=== PATIENT | male | born 1950 | race Caucasian/White ===

== ENCOUNTER 2018-01-25 09:10 | Emergency (ER) | payer MEDICARE ==
[2018-01-25 09:24] VITALS: BP 125/73
--- NOTE | 2018-01-25 10:01 | UC ---
Back Pain HPI - HPI Summary HPI Summary: Pt is a 67 y/o M presents to c/o bilateral lower back pain and stiffness. Notes urine is low in output, dark in color, and smells iftikhar since 6 days ago , but denies dysuria. He also has been having back muscle spasms; today the spasms were in the middle of his back on the right side. Notes fever and cold sweats at night, and right now he is cold and cant stop shaking. When he first noticed the changes in urine he attributed the symptoms to drinking beer during 18 of January holiday, so he changed his liquid intake and only drank soda, water , and Dru-Aid, but symptoms were unchanged. Palpating the kidney area doesnt cause pain and he denies pain in bladder area. He does note that his ear lobe feels like someone is standing on it, scalp pain, and generalized weakness. No Hx of prostate problems. Hx of arthritis. Didnt take his usual medications for muscle stiffness this morning. - History of Current Complaint Chief Complaint: UCGU Stated Complaint: URINARY COMPLAINT Time Seen by Provider: 01/25/18 09:32 Hx Obtained From: Patient Onset/Duration: Lasting Days, Still Present Severity Currently: Moderate Pain Intensity: 5 Pain Scale Used: 0-10 Numeric Associated Signs And Symptoms: Positive: Fever, Weakness - generalized weakness , Flank Pain - Allergies/Home Medications Allergies/Adverse Reactions: Allergies Allergy/AdvReac Type Severity Reaction Status Date / Time clindamycin Allergy sweats Verified 01/25/18 10:33 heart racing Penicillins Allergy kidney's Verified 01/25/18 10:33 shut down Home Medications: Home Medications Adalimumab [Humira] 1 sq-hdm SUBCUT 01/25/18 [History] Citalopram Hydrobromide [Citalopram HBr] 10 mg PO DAILY 01/25/18 [History Confirmed 01/25/18] Hydroxychloroquine Sulfate 200 mg PO DAILY 01/25/18 [History Confirmed 01/25/18] Losartan TAB* [Cozaar TAB*] 50 mg PO DAILY 01/25/18 [History Confirmed 01/25/18] Meloxicam 7.5 mg PO DAILY 01/25/18 [History Confirmed 01/25/18] Pravastatin (NF) [Pravachol (NF)] 10 mg PO DAILY 01/25/18 [History Confirmed 06/04] Ranitidine TAB (NF) [Zantac TAB (NF)] 150 mg PO DAILY 01/25/18 [History Confirmed 01/25/18] PMH/Surg Hx/FS Hx/Imm Hx Cancer History: Prostate Cancer - NEGATIVE: prostate cancer - Surgical History Surgical History: None - Social History Alcohol Use: Occasionally Substance Use Type: None Smoking Status (MU): Former Smoker Review of Systems Constitutional: Chills Skin: Negative Eyes: Negative ENT: Negative Respiratory: Negative Cardiovascular: Negative Gastrointestinal: Other - B/L FLANK PAIN Genitourinary: Other - DARK URINE Motor: Negative Neurovascular: Negative Musculoskeletal: Myalgia Neurological: Weakness - GENERALIZED Psychological: Negative Is Patient Immunocompromised?: Yes All Other Systems Reviewed And Are Negative: Yes Physical Exam Triage Information Reviewed: Yes Vital Signs: Initial Vital Signs Temp 99.4 F 01/25/18 09:19 Pulse 110 01/25/18 09:19 Resp 20 01/25/18 09:19 BP 125/73 01/25/18 09:19 Pulse Ox 100 01/25/18 09:19 Back Pain Course/Dx - Course Course Of Treatment: PATIENT IS ON NURYS. WITH THE DARK URINE, CONCERN OF LIVER OR KIDNEY PROBLEM THAT IS TIME SENSITIVE FOR DIAGNOSIS AND TREATMENT. PATIENT PREFERS TO GO BY POV TO THE ED. - Differential Dx/Diagnosis Provider Diagnoses: DARK URINE. BILATERAL FLANK PAIN. CHILLS Discharge - Sign-Out/Discharge Documenting (check all that apply): Patient Departure - Discharge Plan Condition: Stable Disposition: HOME-RECOMMEND TO ED Patient Education Materials: Fever in Adults (ED), Flank Pain (ED) Referrals: Kash Greene MD [Primary Care Provider] - Additional Instructions: GO DIRECTLY TO THE EMERGENCY DEPARTMENT FOR FURTHER EVALUATION OF YOUR ILLNESS, FLANK PAIN AND CHILLS. - Billing Disposition and Condition Condition: STABLE Disposition: Home-Recommend to ED
== END 2018-01-25 10:07 | disposition home health service (06) ==
LOC: UCEAST 09:10
DX: R82.99 Other abnormal findings in urine (principal); M54.5 Low back pain; R10.9 Unspecified abdominal pain; R68.83 Chills (without fever); Z88.1 Allergy status to other antibiotic agents; Z88.0 Allergy status to penicillin; Z87.891 Personal history of nicotine dependence
CPT/HCPCS: 99212; G0463

== ENCOUNTER 2018-01-25 10:26 | Inpatient (IN) | payer MEDICARE, OTHER ==
--- NOTE | 2018-01-25 10:40 | ED ---
GI/ HPI - HPI Summary HPI Summary: This pt is a 67 y/o male presenting to [facility] from [facility] c/o bilateral flank pain and dark urine color for the past 5 days. Pt reports he began to feel ill 6 days ago and 5 days ago just drank soda. He notes that 4 days ago he began drinking more water but noted his urine was darker, described as "iftikhar color." Denies dysuria. Pt is circumcised. Today he presents with chills and fever. Additionally states he has a cough, runny nose, and dryness in his throat. PMHx: psoriatic arthritis, GERD, high cholesterol, HTN. Pt is on Humira, his last injection was 1 week ago. Allergic to penicillin and clindamycin. - History of Current Complaint Chief Complaint: EDFlankPain Stated Complaint: FLANK PAIN/FEVER Hx Obtained From: Patient Onset/Duration: Started Days Ago, Still Present Timing: Lasting Days Current Severity: Moderate Pain Intensity: 5 Location of Pain: Flank - bilateral Associated Signs and Symptoms: Positive: Fever, Flank Pain - bilateral, Chills, Cough, Other: - dark urine color, runny nose, dryness in his thorat. Negative: Dysuria Aggravating Factor(s): Nothing Alleviating Factor(s): Nothing - Allergy/Home Medications Allergies/Adverse Reactions: Allergies Allergy/AdvReac Type Severity Reaction Status Date / Time clindamycin Allergy sweats Verified 01/25/18 10:33 heart racing Penicillins Allergy kidney's Verified 01/25/18 10:33 shut down PMH/Surg Hx/FS Hx/Imm Hx Cardiovascular History: Reports: Hx Hypertension, Other Cardiovascular Problems/ Disorders - high cholesterol GI History: Reports: Hx Gastroesophageal Reflux Disease Musculoskeletal History: Reports: Hx Arthritis - psoriatic arthritis Denies: Hx Scoliosis Neurological History: Reports: Other Neuro Impairments/Disorders - INJURED BACK IN 70'S AND 80'S HERNIATED DISC Denies: Hx Headaches - Cancer History Cancer Type, Location and Year: poriasis Infectious Disease History: No Infectious Disease History: Denies: Traveled Outside the [place] in Last 30 Days - Family History Known Family History: Positive: Cardiac Disease - Father. Mother with stent - Social History Alcohol Use: Occasionally Substance Use Type: Reports: None Smoking Status (MU): Former Smoker Review of Systems Positive: Fever, Chills Eyes: Negative ENT: Other - dryness in his throat Positive: Nasal Discharge Positive: Cough Genitourinary: Other - dark urine color Positive: flank pain - bilateral. Negative: dysuria Skin: Negative Neurological: Negative All Other Systems Reviewed And Are Negative: Yes Physical Exam - Summary Physical Exam Summary: Appearance: Well appearing, no pain distress Skin: warm, dry, reflects adequate perfusion Head/face: normal Eyes: EOMI, MICHELL ENT: Some nasal discharge. Throat is clear. Neck: supple, non-tender Respiratory: Pt is tachypneic. He has rustling breath sounds in the right base. Cardiovascular: Tachycardic, pulses symmetrical Abdomen: non-tender, soft Bowel: present Musculoskeletal: some rheumatoid changes in joints of his hands. Neuro: normal, sensory motor intact, A&Ox3 Triage Information Reviewed: Yes Vital Signs On Initial Exam: Initial Vitals Temp Pulse Resp BP Pulse Ox 102.2 F 121 22 149/84 100 01/25/18 10:28 01/25/18 10:28 01/25/18 10:28 01/25/18 10:28 01/25/18 10:28 Vital Signs Reviewed: Yes Diagnostics - Vital Signs Vital Signs Temp Pulse Resp BP Pulse Ox 01/25/18 10:28 102.2 F 121 22 149/84 100 - Laboratory Result Diagrams: 01/25/18 11:16 01/25/18 11:15 Lab Statement: Any lab studies that have been ordered have been reviewed, and results considered in the medical decision making process. - Radiology Chest XR Xray Interpretation: No Acute Changes - IMPRESSION: 1. Limited study. 2. Hyperinflation. 3. No active cardiopulmonary disease. Dr. Barrera has reviewed this radiology report. Radiology Interpretation Completed By: ED Physician - Chest XR is negative., Radiologist - EKG 10:53 Cardiac Rate: Tachycardia - at 101 bpm EKG Rhythm: Sinus Tachycardia ST Segment: Normal EKG Interpretation: Normal axis and intervals. GIGU Course/Dx - Course Course Of Treatment: Patient is improving with IV fluids, early antibiotics. He presents with high fever, sepsis syndrome while also immunocompromised on biologic agent for psoriatic arthritis. No septic sources evident on exam. Urine is pending as the patient is unable to provide a sample. He has received a large volume IV fluid resuscitation, antipyretic and antibiotics. The hospitalist was contacted and will admit the patient for further evaluation and treatment. - Diagnoses Differential Diagnoses - Male: Other - Sepsis/bacteremia, and ammonia, sinusitis , UTI, occult source of sepsis Provider Diagnoses: Fever, Sepsis, Immunocompromised state - Physician Notifications Discussed Care Of Patient With: Denny Charles Time Discussed With Above Provider: 12:58 Instructed by Provider To: Admit As Inpatient - Critical Care Time Critical Care Time: 30-74 min - 30 minutes - CCT is EXCLUSIVE of separately billable procedures Discharge - Sign-Out/Discharge Documenting (check all that apply): Patient Departure - Admit - Discharge Plan Condition: Fair Disposition: ADMITTED TO [facility] - Billing Disposition and Condition Condition: FAIR Disposition: Admitted to [facility]
[2018-01-25] MEDS ORDERED: metroNIDAZOLE IV 500 MG/100ML* 500 MG/100 ML BAG IVPB ONE (10:44)
[2018-01-25] MEDS ORDERED: NS 0.9% 1000 ML*IV.FLUID IV ONE (10:44)
[2018-01-25] MEDS ORDERED: Cefepime(*) 2 GM in NS 0.9% 50 ML* 50 ML IVPB ONE (10:44)
[2018-01-25] MEDS ORDERED: Acetaminophen TAB* 325 MG PO ONE (10:46)
[2018-01-25] MEDS ORDERED: NS 0.9% 50 ML* 50 ML ONE (11:11)
[2018-01-25] MEDS ORDERED: Cefepime 2 GM in Dextrose(*) 2 GM/50 ML BAG IV ONE ×2 (11:15→12:00)
[2018-01-25 11:31] LABS: Hematocrit 36 % (42-52); Hemoglobin 12.6 g/dl (14.0-18.0); Mean Corpuscular HGB Conc 35 g/dl (31-36); Mean Corpuscular Hemoglobin 32 pg (27-31); Mean Corpuscular Volume 92 fL (80-94); Mean Platelet Volume 7.7 um3 (7.4-10.4); Platelet Count 236 10^3/ul (150-450); Red Cell Distribution Width 13 % (10.5-15); White Blood Count 12.7 10^3/ul (3.5-10.8)
[2018-01-25 11:34] LABS: ABS Basophils 0 10^3/ul (0-0.2); ABS Eosinophils 0.1 10^3/ul (0-0.6); ABS Lymphocytes 1.3 10^3/ul (1.0-4.8); ABS Monocytes 1.7 10^3/ul (0-0.8); ABS Neutrophils 9.7 10^3/ul (1.5-7.7)
[2018-01-25 11:50] LABS: EGFR Non-African American 51.1 (>60); INR 1.08 (0.77-1.02)
[2018-01-25 11:52] LABS: ABS Basophils 0 10^3/ul (0-0.2); ABS Neutrophils 9.3 10^3/ul (1.5-7.7); Monocytes % 14 % (0-7)
--- NOTE | 2018-01-25 11:53 | RAD ---
HISTORY: fever, sepsis COMPARISONS: October 14, 2014 VIEWS: 4: Frontal dual-energy and lateral views of the chest. The left costophrenic angle is cut off. FINDINGS: CARDIOMEDIASTINAL SILHOUETTE: The cardiomediastinal silhouette is normal. KRYSTAL: The krystal are normal. PLEURA: The right costophrenic angle is sharp. The left costophrenic angle is cut off. LUNG PARENCHYMA: There is hyperinflation. There are calcified granulomas of the chest. ABDOMEN: The upper abdomen is clear. There is no subphrenic gas. BONES AND SOFT TISSUES: No bone or soft tissue abnormalities are noted. OTHER: None. IMPRESSION: 1. LIMITED STUDY. 2. HYPERINFLATION. 3. NO ACTIVE CARDIOPULMONARY DISEASE.
[2018-01-25] MEDS ORDERED: Acetaminophen TAB* 325 MG PO PRN (13:51)
[2018-01-25] MEDS ORDERED: Magnesium Hydroxide LIQ* 30 ML UDC PO PRN (13:51)
[2018-01-25] MEDS ORDERED: Albuterol 2.5 MG/3 ML NEB.SOL* (0.083%) INH PRN (13:51)
[2018-01-25] MEDS ORDERED: Ondansetron INJ* 2 MG/ML VIAL IV PRN (13:51)
[2018-01-25] MEDS ORDERED: Al Hydrox/Mg Hydrox/Simet LIQ* 30 ML UDC PO PRN (13:51)
[2018-01-25] MEDS ORDERED: oxyCODONE/Acetamin 5/325 MG* TAB PO PRN (13:51)
[2018-01-25] MEDS ORDERED: Vancomycin(*) 1,000 MG in NS 0.9% 250 ML* 250 ML IVPB ONE ×2 (13:59)
[2018-01-25] MEDS ORDERED: Vancomycin per Pharmacy* NOTE FOLLOW UP PRN (14:50)
[2018-01-25] MEDS ORDERED: Vancomycin(*) 1,250 MG in NS 0.9% 250 ML* 250 ML IVPB ONE (15:00)
[2018-01-25] MEDS ORDERED: NS 0.9% 250 ML* 250 ML ONE (15:00)
[2018-01-25] MEDS: Heparin VIAL(*) 5000 UNITS/ML VIAL (FIVE THOUSAND) SUBCUT SCH ×2 (15:02→20:46)
--- NOTE | 2018-01-25 15:20 | RAD ---
Indication: Flank pain. Real-time sonography of the kidneys was performed. The right kidney measures 11.0 x 4.2 x 5.2 cm. No hydronephrosis is noted. The left kidney measures 11.0 x 5 3 x 5.5 cm. No hydronephrosis is noted. A cyst is noted in the midportion of the left kidney measuring 1.0 x 1.2 x 0.9 cm. IMPRESSION: Left renal cyst measuring up to 1.0 x 1.2 x 0.9 cm. No hydronephrosis of either kidney is noted.
--- NOTE | 2018-01-25 15:53 | HP ---
CC: Dr. Greene* ADMISSION HISTORY AND PHYSICAL: DATE OF ADMISSION: 01/25/18 PATIENT OF: Dr. Anthony Charles.* (DICTATED BY JACKELYN PALMER) PRIMARY CARE PHYSICIAN: Dr. Kash Greene. CHIEF COMPLAINT: 1. Bilateral flank pain and decreased urine output. 2. Fever and chills. 3. Generalized malaise. HISTORY OF PRESENT ILLNESS: Mr. Ho is a 67-year-old gentleman who carries past medical history significant for rheumatoid arthritis, for which he takes a Humira shot every other week as well as history of hypertension who was sent to [facility] Emergency Room by Dr. Trevino from urgent care facility with complaints of bilateral flank pain, fever, chills, tachycardia, and dark urine x1 week. The patient notes that he had multiple parties to attend around 01/18/18 that noted to have very hot temperature outdoors. He has been drinking lots of beer in every green party and has not been drink an enough water. He noticed gradual decrease in his urine output everyday that appears to be darker and darker in color, more iftikhar and dark brown, but denies any bright red blood in his urine. He also noticed associated bilateral flank pain in the past couple of days as well as low-grade fever that has gotten worse last night to the point of having shaking chills. He also notes some night sweats last night as well and generalized malaise overall. He denied any nausea, vomiting, abdominal pain, or history of nephrolithiasis. He denies any suprapubic pain, dysuria, or urinary frequency. He had approximately half a cup of urine upon waking up this morning and has not peed since then. He was evaluated in the emergency room and at the time of admission, the patient was still unable to void and his bladder scan is pending at this time anticipating straight catheterization if indicated. His laboratory workup showed mild leukocytosis of 12,000. He also had a fever of 102 upon presentation. He also had tachycardia with heart rate of 121 that was markedly improved after 2.5 liters of resuscitation. The patient met all criteria for sepsis, for which we were asked to see for further evaluation of probable urinary tract infection versus pyelonephritis as well as consider admission for aggressive IV hydration as well as antibiotics. PAST MEDICAL HISTORY: As mentioned above, significant for: 1. Rheumatoid arthritis, for which he takes Humira every other Tuesday. 2. Hypertension. 3. Hyperlipidemia. 4. GERD. PAST SURGICAL HISTORY: None. CURRENT MEDICATIONS: Include: 1. Humira 40 mg syringe 1 subcu injection every other Tuesday. 2. Citalopram 10 mg p.o. daily. 3. Hydroxychloroquine sulfate 200 mg p.o. daily. 4. Losartan 50 mg p.o. daily. 5. Meloxicam 7.5 mg p.o. daily. 6. Pravastatin 10 mg p.o. q.h.s. 7. Zantac 150 mg p.o. daily. ALLERGIES: He is allergic to PENICILLINS and CLINDAMYCIN. FAMILY HISTORY: Significant for [place] in his father and grandfather, but denies any malignancies. 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 He is a and lives with a girlfriend, Elida, which he known for 5 years. She is the healthcare proxy. He is a former smoker who quit smoking back in 1997. He drinks alcohol occasionally, however again he thinks he "overdid it over 01/18/18 weekend with multiple parties and binge drinking back then." He denies illicit drug use. REVIEW OF SYSTEMS: See HPI, otherwise 14-point review of systems were evaluated and were essentially negative. PHYSICAL EXAMINATION GENERAL: He is a pleasant, upper middle-aged gentleman, appears healthy and in no acute distress or discomfort at the time of admission. VITAL SIGNS: Revealed temperature of 101.4, pulse of 107, blood pressure of 159 /86, respirations of 22 with O2 sat of 100% on room air. HEENT: Head is normocephalic, atraumatic. Sclerae anicteric. PERRLA. EOMs intact. Oropharynx is pink and moist. NECK: Supple. Trachea midline. No cervical adenopathy, thyromegaly, or JVD. LUNGS: Clear to auscultation bilaterally. HEART: Regular rate and rhythm. Normal S1 and S2 without rubs, murmurs, or gallops. ABDOMEN: Soft, nontender, and nondistended. There are no hernias, masses, or hepatosplenomegaly. There is no suprapubic distention or tenderness on palpation. BACK: With normal curvature and no CVA tenderness. EXTREMITIES: Without cyanosis, clubbing, or edema. RECTAL: Exam deferred at this time. NEUROLOGIC: He is awake, alert, and oriented x4. Neurological exam is grossly normal. LABORATORY DATA: CBC with white count of 12,700, hemoglobin 12.6, hematocrit 36, and platelets of 236. Chemistry panel with sodium of 134, potassium 3.4, chloride of 100, CO2 of 23, BUN of 19, and creatinine of 0.39. His LFTs are essentially within normal limits with slight elevation of his transaminases at 57 and 78 respectively. His C-reactive protein is elevated with value of 237. ACCESSORY DIAGNOSTIC DATA: EKG done earlier revealed sinus tachycardia with no evidence of ST changes. Chest x-ray showed hyperventilation with no active cardiopulmonary disease. ASSESSMENT AND PLAN: A 67-year-old gentleman who has past medical history significant for hypertension, hyperlipidemia, gastroesophageal reflux disease, and rheumatoid arthritis who presented to the emergency room sent from the Urgent Care Clinic with a week history of generalized malaise with worsening flank pain, fever, chills, tachycardia, and low urine output, for which he will be admitted under medical services for the followin. Sepsis. The patient meets sepsis criteria with tachycardia, fever, and leukocytosis. He had approximately 25 cc of normal saline fluid resuscitation in ED and will continue his aggressive IV hydration as an inpatient. He appears to be hemodynamically stable at this time. He also received the dose of cephalosporin and metronidazole in the ED and will continue and add a dose of vancomycin to be adjusted by pharmacy later on. I suspect urinary source of his symptoms awaiting the results of his urinalysis and the reflected culture and sensitivity. He does not have any CVA tenderness on exam suggesting pyelonephritis at this point, but we will obtain renal ultrasound for further evaluation. I will also continue to do bladder scan every 6 hours with straight catheterization if needed given the patient has any symptoms of urinary retention. 2. Fever and chills. Again secondary to probable urinary source. We will cover prophylactically on antibiotic awaiting urinalysis and blood culture findings. 3. Hypertension. We will continue his losartan. 4. Hyperlipidemia. We will continue his statin. 5. Gastroesophageal reflux disease. We will continue his Zantac as prescribed. 6. DVT prophylaxis. The patient is a high risk, will be covered with subcu heparin. 7. Code status. He is a full code and girlfriend, Elida, is the healthcare proxy. TIME SPENT: Approximately 60 minutes were spent admitting this patient with greater than 50% on obtaining history and performing physical exam. I have discussed the case with my attending, Dr. Charles, who agreed to plan of care. JACKELYN PALMER [id number]/CPS #: [id number] MELITA
[2018-01-25] MEDS: NS 0.9% 1000 ML* 1,000 ML IV SCH (16:59)
[2018-01-25] MEDS: Ibuprofen TAB* 600 MG PO PRN (20:45)
[2018-01-25] MEDS: PRAVASTATIN 10 MG PO SCH (20:46)
[2018-01-26] MEDS: Vancomycin(*) 750 MG in NS 0.9% 250 ML* 250 ML IVPB SCH ×3 (01:33→17:21)
[2018-01-26] MEDS: NS 0.9% 1000 ML* 1,000 ML IV SCH (02:03)
[2018-01-26] MEDS: Heparin VIAL(*) 5000 UNITS/ML VIAL (FIVE THOUSAND) SUBCUT SCH ×3 (05:48→22:36)
[2018-01-26 06:54] LABS: ABS Basophils 0 10^3/ul (0-0.2); ABS Eosinophils 0.1 10^3/ul (0-0.6); ABS Lymphocytes 1.6 10^3/ul (1.0-4.8); ABS Monocytes 1.2 10^3/ul (0-0.8); ABS Neutrophils 8.7 10^3/ul (1.5-7.7); ABS Nucleated RBC 0 10^3/ul; Eosinophil % 0.9 % (0-6); Hematocrit 30 % (42-52); Hemoglobin 10.7 g/dl (14.0-18.0); Mean Corpuscular HGB Conc 35 g/dl (31-36); Mean Corpuscular Hemoglobin 33 pg (27-31); Mean Corpuscular Volume 92 fL (80-94); Mean Platelet Volume 7.6 um3 (7.4-10.4); Nucleated Red Blood Cells % 0; Platelet Count 192 10^3/ul (150-450); Red Blood Count 3.27 10^6/ul (4.00-5.40); Red Cell Distribution Width 13 % (10.5-15); White Blood Count 11.7 10^3/ul (3.5-10.8)
[2018-01-26 07:15] LABS: EGFR Non-African American 56.7 (>60)
[2018-01-26] MEDS: Hydroxychloroquine TAB* 200 MG PO SCH (08:50)
[2018-01-26] MEDS: Citalopram TAB* 10 MG PO SCH (08:50)
[2018-01-26] MEDS: Losartan TAB* 25 MG PO SCH (08:51)
[2018-01-26] MEDS: Famotidine TAB* 20 MG PO SCH (08:51)
[2018-01-26 09:00] LABS: Urine Appearance Clear; Urine Blood Negative (Negative); Urine Color Yellow; Urine Ketones Negative (Negative); Urine Protein Negative (Negative); Urine Specific Gravity 1.013 (1.010-1.030); Urine Urobilinogen Negative (Negative)
[2018-01-26] MEDS ORDERED: Cefepime 1 GM in Dextrose(*) 1 GM/50 ML BAG IV SCH (09:00)
--- NOTE | 2018-01-26 11:17 | PN ---
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 H had been in his usual state of health till 1-2 days prior to admission when he noted dark urine and decreased UO. He started drinking more liquids, but then he developed fever and rigors. Saw ticks walking on him, but no documented tick bites. Today feels back to baseline Stays in a [facility] for the [facility], then goes to [place] for winter Objective Active Medications: Acetaminophen (Tylenol Tab*) 975 mg PO Q6H PRN PRN Reason: FEVER/PAIN Last Admin: 01/25/18 16:26 Dose: 975 mg Al Hydrox/Mg Hydrox/Simethicone (Maalox Plus*) 30 ml PO Q6H PRN PRN Reason: INDIGESTION Albuterol (Ventolin 2.5 Mg/3 Ml Neb.Cecy*) 2.5 mg INH [id number] AWAKE PRN PRN Reason: sob/wheezing Citalopram Hydrobromide (Celexa Tab*) 10 mg PO DAILY [facility] Last Admin: 01/26/18 08:50 Dose: 10 mg Famotidine (Pepcid Tab*) 20 mg PO DAILY [facility]; Protocol Last Admin: 01/26/18 08:51 Dose: 20 mg Heparin Sodium (Porcine) (Heparin Vial(*)) 5,000 units SUBCUT Q8HR [facility] Last Admin: 01/26/18 05:48 Dose: 5,000 units Hydroxychloroquine Sulfate (Plaquenil Tab*) 200 mg PO DAILY [facility] Last Admin: 01/26/18 08:50 Dose: 200 mg Vancomycin HCl 750 mg/ Sodium (Chloride) 250 mls @ 166.667 mls/hr IVPB Q8H [facility] Last Admin: 01/26/18 09:26 Dose: 166.667 mls/hr Ibuprofen (Motrin Tab*) 600 mg PO Q6H PRN PRN Reason: PAIN/FEVER Last Admin: 01/25/18 20:45 Dose: 600 mg Losartan Potassium (Cozaar Tab*) 50 mg PO DAILY [facility] Last Admin: 01/26/18 08:51 Dose: 50 mg Magnesium Hydroxide (Milk Of Magnesia Liq*) 30 ml PO Q4H PRN PRN Reason: CONSTIPATION Ondansetron HCl (Zofran Inj*) 4 mg IV Q4H PRN PRN Reason: NAUSEA/VOMITING Oxycodone/Acetaminophen (Percocet 5/325 Tab*) 1 tab PO Q4H PRN PRN Reason: Pain Pharmacy Profile Note (Vancomycin Trough Check) 1 note FOLLOW UP 1630 ONE Stop: 01/26/18 16:31 Pravastatin Sodium (Pravachol (Nf)) 10 mg PO 2100 JOSE RAUL Last Admin: 01/25/18 20:46 Dose: Not Given Vital Signs - 8 hr 01/26/18 07:54 Temperature 98.9 F Pulse Rate 72 Respiratory 16 Rate Blood Pressure 119/71 (mmHg) O2 Sat by Pulse 99 Oximetry Oxygen Devices in Use Now: None Appearance: 67 yo M in NAd, AAOx3 Eyes: No Scleral Icterus, PERRLA Ears/Nose/Mouth/Throat: NL Teeth, Lips, Gums, Mucous Membranes Moist Neck: NL Appearance and Movements; NL JVP, Trachea Midline Respiratory: Symmetrical Chest Expansion and Respiratory Effort, Clear to Auscultation Cardiovascular: NL Sounds; No Murmurs; No JVD, RRR Abdominal: NL Sounds; No Tenderness; No Distention, - - back: mild tenderness on left lumbar musculature Lymphatic: No Cervical Adenopathy Extremities: No Edema, No Clubbing, Cyanosis Skin: No Rash or Ulcers, No Nodules or Sclerosis Neurological: Alert and Oriented x 3, NL Muscle Strength and Tone Result Diagrams: 01/26/18 06:27 01/26/18 06:27 Microbiology and Other Data: Microbiology 01/25/18 15:20 Influenza Types A,B Antigen - Final Nasal Specimen received for Influenza A/B Molecular testing Assess/Plan/Problems-Billing Assessment: 67 yo M with h/o RA on Humira presents with fever , rigors, decreased UO and dark urine - Patient Problems (1) SIRS (systemic inflammatory response syndrome) Comment: Blood cx pending. UA unremarkable. CXR neg. Pt received Cefepime/Vanc/Flagyl since admission For now will stop all the antibiotics, since no source was identified Check Lyme titer monitor x another 24H Pt is on biologic agent-immunocompromised (2) Rheumatoid arthritis Comment: controled On Humira at home cont Plaquenil (3) CKD (chronic kidney disease) Comment: creat at bseline (4) Anemia Comment: Hb down to 10 today-suspect dilution, no evidence/signs of bleeding (5) HTN (hypertension) Comment: controlled on losartan (6) LFT elevation Comment: mild, resolving, due to SIRS? will monitor (7) DVT prophylaxis Comment: HSQ Status and Disposition: inpatient
--- NOTE | 2018-01-26 14:36 | RAD ---
Indication: Fever, elevated liver enzymes. CT of the abdomen and pelvis was performed without oral or IV contrast administration. Coronal and sagittal reconstructed images were obtained. In the periphery of the right lower lobe there is a calcified granuloma measures 3 mm. Calcified granuloma is noted over the right hemidiaphragm and in the right posterior costophrenic angle. This is consistent with old granulomatous disease. Heart demonstrates no pericardial effusion. Liver is normal in size. No focal lesions or intrahepatic duct dilatation is noted. [A glomus disease of the spleen is noted. Common duct is not dilated. The pancreas demonstrates no mass or pancreatic duct dilatation. No adrenal lesions are noted. The kidneys demonstrate no hydronephrosis. No retroperitoneal lymphadenopathy is noted. No dilated loops of bowel are noted. CT of the pelvis demonstrates no dilated loops of bowel. The colon is filled with stool. Diverticulosis without definite evidence of diverticulitis. Urinary bladder is unremarkable. No dilated small bowel are noted. Atherosclerotic aorta is noted. Prostate is grossly unremarkable. IMPRESSION: No abnormal masses or fluid collections are identified. No evidence of obstructive uropathy is noted. No abnormal fluid collections are noted. Calcified granulomas in the right lung base and spleen.
[2018-01-26] MEDS ORDERED: Vancomycin Trough Check NOTE FOLLOW UP ONE (16:30)
[2018-01-26] MEDS ORDERED: Vancomycin per Pharmacy* NOTE FOLLOW UP PRN (16:56)
[2018-01-26] MEDS: PRAVASTATIN 10 MG PO SCH (22:35)
[2018-01-26] MEDS: Ibuprofen TAB* 600 MG PO PRN (22:36)
[2018-01-27] MEDS: Heparin VIAL(*) 5000 UNITS/ML VIAL (FIVE THOUSAND) SUBCUT SCH ×2 (06:23→14:57)
[2018-01-27 07:00] LABS: ABS Basophils 0 10^3/ul (0-0.2); ABS Eosinophils 0.2 10^3/ul (0-0.6); ABS Lymphocytes 3.3 10^3/ul (1.0-4.8); ABS Monocytes 0.7 10^3/ul (0-0.8); ABS Neutrophils 4.8 10^3/ul (1.5-7.7); ABS Nucleated RBC 0 10^3/ul; Eosinophil % 2.7 % (0-6); Hematocrit 30 % (42-52); Hemoglobin 10.6 g/dl (14.0-18.0); Lymphocyte % 36.2 % (25-47); Mean Corpuscular HGB Conc 36 g/dl (31-36); Mean Corpuscular Hemoglobin 33 pg (27-31); Mean Corpuscular Volume 92 fL (80-94); Mean Platelet Volume 7.7 um3 (7.4-10.4); Nucleated Red Blood Cells % 0; Platelet Count 225 10^3/ul (150-450); Red Blood Count 3.25 10^6/ul (4.00-5.40); Red Cell Distribution Width 14 % (10.5-15); White Blood Count 9.1 10^3/ul (3.5-10.8)
[2018-01-27 07:24] LABS: EGFR Non-African American 63.6 (>60)
[2018-01-27] MEDS ORDERED: DOXYcycline IV* 100 MG in NS 0.9% 250 ML* 250 ML IVPB ONE (09:08)
[2018-01-27] MEDS: Losartan TAB* 25 MG PO SCH (09:14)
[2018-01-27] MEDS: Citalopram TAB* 10 MG PO SCH (09:14)
[2018-01-27] MEDS: Hydroxychloroquine TAB* 200 MG PO SCH (09:14)
[2018-01-27] MEDS: Famotidine TAB* 20 MG PO SCH (09:14)
[2018-01-27] MEDS ORDERED: Lactobacillus Acidophilus* 1 TAB PO SCH (10:00)
[2018-01-27 15:42] VITALS: BP 150/73
[2018-01-27] MEDS ORDERED: DOXYcycline CAP(*) 100 MG PO SCH (21:00)
--- NOTE | 2018-01-27 21:27 | CONS ---
CONSULTATION REPORT: DATE OF CONSULT: 01/27/18 CONSULTING SERVICE: Infectious Disease. REQUESTING PHYSICIAN: Dr. Marion. REASON FOR CONSULT: Fever. IMPRESSION: 1. About a week of fever, diffuse myalgia, most prominent in his upper and lower back paraspinal muscles, with malaise, anorexia, shaking chills, in the setting of Enbrel use. Abnormalities on blood testing include a mild leukocytosis, mild transaminitis with normal bilirubin, elevated C-reactive protein about 250. Urinalysis was negative. Influenza PCR negative with chest x -ray. CT of the abdomen and pelvis were all negative. He had about a day of vancomycin and cefepime. No fever in the last 24 hours. His appetite is good. Differential diagnosis includes viral infection, which was made more severe by Enbrel therapy, though even in that case I will expect for recovery; bacterial infection, including this time of year some tick-borne infections come to mind including Lyme, anaplasma given the mild transaminitis. The less common is to see the leukocytosis with either, though still a consideration at this time of year. 2. Rheumatoid arthritis, on Enbrel. 3. Allergy to PENICILLIN and CLINDAMYCIN. RECOMMENDATIONS: Doxycycline 100 mg by mouth twice a day while awaiting the blood testing for tick-borne infection. HISTORY OF PRESENT ILLNESS: This is a 67-year-old male with rheumatoid arthritis, admitted with fever, malaise, myalgia, on 01/25/18. His symptoms developed middle of last week with fatigue, decreased appetite, some chills, sweats and eventually fevers, diffuse myalgia, focused more severely in the upper and lower back. He had some darkened urine. He thinks may be not drinking a fluid at that time. He came to the hospital on the 01/25/18. White blood cell count was 12, fever to 102, his ALT was 78, down to 72 today. His urinalysis was negative. Influenza PCR negative. Blood cultures negative. He had IV hydration. He had a chest x-ray, which was unremarkable. CT of the abdomen and pelvis was unremarkable. His white count has come down, despite not continuing antibiotics. He feels pretty much back to his usual self today. PAST MEDICAL HISTORY: 1. Rheumatoid arthritis. 2. Hypertension. 3. Hyperlipidemia. 4. Gastroesophageal reflux disease. MEDICATIONS: 1. Tylenol. 2. Albuterol. 3. Celexa. 4. Doxycycline 100 mg by mouth twice a day. 5. Famotidine. 6. Heparin subcutaneous injection. 7. Plaquenil. 8. Ibuprofen as needed. 9. Lactobacillus. 10. Losartan. 11. Oxycodone as needed. 12. Pravastatin. ALLERGIES: PENICILLIN and CLINDAMYCIN. FAMILY HISTORY: No recurrent infections or tuberculosis. SOCIAL HISTORY: He lives in [place] with his . He is retired. No travel out of area. No sick contacts. Spends a fair amount of time outdoors. REVIEW OF SYSTEMS: All negative to 14-point review of systems, except as noted above in the history of present illness. PHYSICAL EXAM: Vital Signs: Temperature is 37, heart rate 70, respiratory rate 18, blood pressure 139/79, oxygen saturation 98% on room air. In general, he is awake, not in distress. Neurologic: He is oriented x3. Follows all commands. HEENT: There is no conjunctival hemorrhage. Oropharynx without lesions. Neck: Supple without mass. Lymph Nodes: There is no cervical, supraclavicular, inguinal, axillary, or epitrochlear lymphadenopathy. Heart is regular rate and rhythm without murmurs, rubs, or gallops. Lungs are clear to auscultation bilaterally. Abdomen is soft, nontender, nondistended. There are bowel sounds present. Skin: There are no rashes or splinter hemorrhages. Musculoskeletal: There is no spine tenderness to palpation. Fingers in the right hand have mild ulnar deviation. LABORATORY DATA: White blood cell count 9, hemoglobin 10, platelets 225, MCV is 92. Creatinine is 1.1. ALT 72, AST 39, alkaline phosphatase 69. Please see impressions and recommendations as outlined above, which I discussed with Dr. Marion. Thanks for allowing me to see Mr. Ho in consultation. [id number]/[facility] #: [id number] MELITA
--- NOTE | 2018-01-28 02:40 | DS ---
CC: Dr. Greene; Dr. Blum; Vaishnavi Regalado * DISCHARGE SUMMARY: DATE OF ADMISSION: 01/25/18 DATE OF DISCHARGE: 01/27/18 PRIMARY CARE PROVIDER: Dr. Greene DISCHARGE DIAGNOSES: 1. Dehydration. 2. Systemic inflammatory response syndrome with fever with workup of tick born illness ongoing. SECONDARY DIAGNOSES: 1. History of rheumatoid arthritis. 2. Hypertension. 3. Hyperlipidemia. 4. Gastroesophageal reflux disease. MEDICATIONS AT DISCHARGE: Include 1. Doxycycline 100 mg p.o. b.i.d. for total of 2 weeks. Remaining medications are unchanged and include: 1. Humira as previously taken. 2. Celexa 10 mg daily. 3. Hydroxychloroquine 200 mg daily. 4. Losartan 50 mg daily. 5. Meloxicam 7.5 mg daily. 6. Pravastatin 10 mg q.h.s. 7. Zantac 150 mg daily. LABORATORY DATA AND STUDIES PERFORMED DURING THE HOSPITAL STAY: Included: The patient's microbiology testing included influenza testing which was negative for influenza A and B as well as blood cultures that were negative on the day of discharge. On 01/27/18, white blood cell count of 9.1, hemoglobin of 10.6, hematocrit of 30 , and platelets of 225. Sodium 141, potassium 3.6, chloride 110, carbon dioxide 24, BUN 12, and creatinine 1.15. Liver function test showed AST of 39 and ALT of 72. C-reactive protein was 254 on 01/26/18. On admission, the patient's AST was 67, ALT of 78, and creatinine was 1.39. HOSPITALIZATION COURSE: Jose L Ho is a 67-year-old male with history of rheumatoid arthritis, for which he takes biologic agent who presented to the hospital after he stated he had several parties in the area and drinking alcohol. He stated he noted decreased urine output and when he started developing fevers. His rigors caused him to have muscular pain in the back. He presented to the ED and he was noted to have hyponatremia likely due to dehydration with mild elevation of liver function test. His temperature was 102.2 degrees. Otherwise, his infectious workup included urinalysis, urine cultures, and chest x-ray were unremarkable. The patient's abnormal liver function tests rapidly improved by the time of discharge after intravenous hydration. The patient's creatinine at baseline is at approximately 1.3 to 1.4 and actually improved after hydration during his hospital stay. Initially, the patient was placed on boosters of antibiotics and all of them were stopped approximately 12 hours since the patient's hospital stay. For another 12 hours , the patient was observed without any antibiotics and he had a temperature of 100.1 degrees during that time. Due to elevation of LFTs and the patient being on biologic agent and due to that immunosuppressed, the patient had a CT of abdomen, pelvis obtained on 01/26/18 which showed no abnormal masses or fluid collections identified. No evidence of obstructive uropathy noted. No abnormal fluid collections noted. Calcified granulose in the right lung base and spleen. The patient also had a renal ultrasound due to complaints of decreased urine output at the beginning of his hospital stay which showed left renal cyst measuring up to 1 x 1.2 x 0.9 cm. No hydronephrosis of either kidney was noted. Lyme titers were ordered as well as other tick born diseases antibody PCR, but those are still pending at the time of dictation. On the day of discharge due to his low grade fever the night prior, he was placed on doxycycline. Dr. Blum saw the patient in consultation. The suspicion is that patient likely is having one of the tick born illnesses. At this point, the patient was recommended to continue doxycycline at 100 mg twice a day for total of 14 days. At discharge, the patient recommended to follow up with his primary care provider in approximately 4 to [address] Blum in 1 to 2 weeks. PHYSICAL EXAM AT THE TIME OF DISCHARGE: Blood pressure of 139/79, heart rate of 69 and regular, respiratory rate 18, oxygen saturation 98% on room air, temperature 98.8. General: The patient is a very pleasant 67-year-old male who is in no acute distress. Alert, awake, and oriented x3. HEENT: Head: Atraumatic, normocephalic. Eyes: Pupils are equal, reactive to light and accommodation. Oropharynx is clear. Mucosa moist. Neck: Supple. No JVD. No bruits bilaterally. Cardiovascular: Regular rate and rhythm. No murmur. Respiratory: Clear to auscultation bilaterally. Abdomen: Soft, nontender, bowel sounds present in all 4 quadrants. On palpation of back, no tenderness noted. Extremities: There is no edema. Pulses +2 bilaterally. No clubbing or cyanosis. Neuro Evaluation: Speech clear. Cranial nerves II through XII grossly intact. Motor strength is 5/5 bilaterally. On evaluation of the skin, no ecchymotic areas or rash is noted. The patient is going to be discharged home with recommendations to follow up as above. TIME SPENT: Approximately 35 minutes was spent on preparation and discharge of this patient. Please note that this is a short summary of the patient's hospitalization. Please refer to further medical records for details. [id number]/[facility] #: [id number] [facility] CENTERWayne
== END 2018-01-27 16:05 | disposition home or self-care (01) | DRG 866 ==
LOC: ED 10:26 → MED 13:51
PROVIDERS: ADMIT Internal Medicine; ATTEND Internal Medicine
DX: A93.8 Other specified arthropod-borne viral fevers (principal); E87.1 Hypo-osmolality and hyponatremia; E86.0 Dehydration; L40.50 Arthropathic psoriasis, unspecified; K21.9 Gastro-esophageal reflux disease without esophagitis; M06.9 Rheumatoid arthritis, unspecified; E78.5 Hyperlipidemia, unspecified; I12.9 Hypertensive chronic kidney disease with stage 1 through stage 4 chronic kidney disease, or unspecified chronic kidney disease; N18.9 Chronic kidney disease, unspecified; D64.9 Anemia, unspecified; R79.89 Other specified abnormal findings of blood chemistry; N28.1 Cyst of kidney, acquired; Z88.0 Allergy status to penicillin; Z88.1 Allergy status to other antibiotic agents; Z82.49 Family history of ischemic heart disease and other diseases of the circulatory system; Z87.891 Personal history of nicotine dependence; Z72.89 Other problems related to lifestyle
CPT/HCPCS: 36415; 71046; 74176; 76775; 80048; 80053; 80076; 80202; 81003; 83605; 84484; 85025; 85060; 85610; 85730; 86140; 86617; 86618; 86666; 86753; 87040; 93005; 99212; 99284; A9270-GY; G0463; J0692; J1644; J3370; J3490